=== PATIENT | female | born 1960 | race Caucasian/White ===

== ENCOUNTER → 2019-12-01 07:39 | Outpatient (CLI) | payer OTHER, SELFPAY ==
[2016-09-20 10:48] VITALS: BMI 43.1
[2019-12-01 08:43] LABS: Albumin, Serum 3.5 g/dL (3.2-5.0); BUN 13 mg/dL (7-18); BUN/Creat Ratio 9.1 RATIO (10-20); Calcium,Total 9.7 mg/dL (8.5-10.1); Chloride 107 mmol/L (98-107); Creatinine, Serum 1.43 mg/dL (0.55-1.02); EST Glomerular Filtration Rate 40 mL/min (>60); Est Glom Filt Rate - Afr Amer 49 mL/min (>60); Glucose 115 mg/dL (74-106); Phosphorus 3.5 mg/dL (2.5-4.9); Potassium 4.3 mmol/L (3.5-5.1); Sodium Level 142 mmol/L (136-145)
== END ==
LOC: LAB.FUTURE 07:44 → LAB 07:52
PROVIDERS: PCP Family Medicine; Referring Provider Internal Medicine Nephrology; Visit Provider Internal Medicine Nephrology
DX: N18.3 Chronic kidney disease, stage 3 (moderate) (principal)
CPT/HCPCS: 36415; 80069

== ENCOUNTER → 2019-12-29 09:36 | Outpatient (CLI) | payer OTHER, SELFPAY ==
[2016-09-20 10:48] VITALS: BMI 43.1
[2019-12-29 10:43] LABS: Albumin, Serum 3.3 g/dL (3.2-5.0); BUN 14 mg/dL (7-18); BUN/Creat Ratio 11.6 RATIO (10-20); Calcium,Total 9.2 mg/dL (8.5-10.1); Chloride 106 mmol/L (98-107); Creatinine, Serum 1.21 mg/dL (0.55-1.02); EST Glomerular Filtration Rate 49 mL/min (>60); Est Glom Filt Rate - Afr Amer 59 mL/min (>60); Glucose 106 mg/dL (74-106); Phosphorus 2.4 mg/dL (2.5-4.9); Potassium 4.1 mmol/L (3.5-5.1); Sodium Level 140 mmol/L (136-145)
== END ==
PROVIDERS: PCP Family Medicine; Referring Provider Internal Medicine Nephrology; Visit Provider Internal Medicine Nephrology
DX: N18.3 Chronic kidney disease, stage 3 (moderate) (principal)
CPT/HCPCS: 36415; 80069

== ENCOUNTER → 2020-12-26 12:01 | Outpatient (CLI) | payer OTHER, SELFPAY ==
--- NOTE | 2020-12-26 14:23 | NEURO_ITS ---
NCS and/or EMG Patient Report Ordering Doctor: Dawood Ahuja III DATE OF SERVICE: 12/26/20 Indication: Bilateral wrist pain with intermittent numbness and tingling in the hands. Evaluate for median neuropathy. Findings: Nerve conduction studies were performed in the right and left upper extremities. The right median motor study recording the abductor pollicis brevis showed a normal amplitude, prolonged distal latency and slowed conduction velocity. The right ulnar motor study recording the abductor digiti minimi showed a normal amplitude, normal distal latency and normal conduction velocity. No conduction block or focal slowing was present across the elbow. The right median sensory response recording digit two showed a normal amplitude, prolonged latency and slowed conduction velocity. The right ulnar sensory response recording digit five showed a normal amplitude, latency and conduction velocity. The right radial sensory response recording over the extensor snuff box showed a normal amplitude, latency and conduction velocity. The left median motor study recording the abductor pollicis brevis showed a normal amplitude, prolonged distal latency and normal conduction velocity. The left ulnar motor study recording the abductor digiti minimi showed a normal amplitude, normal distal latency and normal conduction velocity. No conduction block or focal slowing was present across the elbow. The left median sensory response recording digit two showed a normal amplitude, prolonged latency and borderline conduction velocity. The left ulnar sensory response recording digit five showed a normal amplitude, latency and conduction velocity. The left radial sensory response recording over the extensor snuff box showed a normal amplitude, latency and conduction velocity. Right median-ulnar lumbrical / interosseous motor latencies showed a prolonged median latency compared to the ulnar. Left median-ulnar lumbrical / interosseous motor latencies showed a prolonged median latency compared to the ulnar. Needle EMG of the right upper extremity and cervical paraspinal muscles was performed. No denervation was seen in any muscle. All motor unit morphology, activation and recruitment patterns were normal. Needle EMG of the left abductor pollicis brevis was performed. No denervation was seen. Motor unit morphology, activation and recruitment patterns were normal. Impression: This is a mildly abnormal study. There is electrophysiologic evidence of median neuropathy across the wrist on both sides (mild on the right; mild on the left). These findings are compatible with the clinical diagnosis of carpal tunnel syndrome. In addition, there is no electrophysiologic evidence of cervical radi culopathy or other entrapment neuropathy in the right upper extremity. Evangelista Yoon D.O.
== END ==
LOC: PSN 12:01
PROVIDERS: PCP Family Medicine; Referring Provider Family Medicine; Visit Provider Family Medicine
DX: G56.03 Carpal tunnel syndrome, bilateral upper limbs (principal)
CPT/HCPCS: 95885; 95886; 95913

== ENCOUNTER 2022-02-27 14:37 | Emergency (ER) | payer SELFPAY ==
[2022-02-27 14:38] VITALS: BP 148/70; PULSE 62; RESP 15; TEMP 36.2; O2SAT 97; BMI 49.6
[2022-02-27 14:40] VITALS: BP 148/70; PULSE 62; RESP 16; TEMP 36.2; O2SAT 97
--- NOTE | 2022-02-27 15:10 | MRI_ITS ---
STUDY: MR Spine Lumbar W/O Contrast 02/27/2022 7:59 PM REASON FOR EXAM: Female, 61 years old. Back pain radiculopathy, LBP x 5 weeks, urine and bowel incontinance x 2 days TECHNIQUE: MR Spine Lumbar W/O Contrast Standardized fat and water weighted pulse sequences were obtained. COMPARISON: None FINDINGS: T12-L1: Loss of intervertebral disc height. There is endplate spondylosis of the vertebral body. Normal central canal and intervertebral neuroforamina. There is bilateral facet arthropathy. There is bilateral ligamentum flavum thickening. Normal lumbar lordosis. There is no substantial scoliosis. Normal conus medullaris that terminates at the L1. L1-2: Loss of intervertebral disc height. There is endplate spondylosis of the vertebral body. Normal central canal and intervertebral neuroforamina. There is bilateral facet arthropathy. There is bilateral ligamentum flavum thickening. L2-3: Loss of intervertebral disc height. There is endplate spondylosis of the vertebral body. Normal central canal and intervertebral neuroforamina. There is bilateral facet arthropathy. There is bilateral ligamentum flavum thickening. L3-4: Loss of intervertebral disc height. There is endplate spondylosis of the vertebral body. Normal central canal and intervertebral neuroforamina. There is bilateral facet arthropathy. There is bilateral ligamentum flavum thickening. L4-5: Loss of intervertebral disc height. There is endplate spondylosis of the vertebral body. Normal central canal and intervertebral neuroforamina. There is bilateral facet arthropathy. There is bilateral ligamentum flavum thickening. L5-S1: Loss of intervertebral disc height. There is endplate spondylosis of the vertebral body. There is bilateral facet arthropathy. Normal central canal and intervertebral neuroforamina. Normal visualized sacral ala. Normal visualized paraspinous soft tissue structures. MRI/Spine Lumbar (Routine) IMPRESSION: Multilevel degenerative changes, as described above. Electronically Signed: Antwan Mares MD at 20:02 EDT ,
--- NOTE | 2022-02-27 15:12 | EDS_ITS ---
HPI History of Present Illness Chief Complaint: Back Detail of Chief Complaint: Back pain that initially started 5 weeks ago Informant: patient Onset/Context/Timing Current Severity: 01/07 Maximum Severity: Severe Associated Symptoms Associated Symptoms: Numbness, Tingling, Radiation to Right Leg, Urinary Incontinence and Fecal Incontinence Narrative Narrative: Patient presents to the emergency department complaint of back pain that initially started about 5 weeks ago after doing physical therapy for work. Patient initially she thought she just pulled a muscle in her back and had a lot of soreness that lasted several weeks but eventually got better. Patient states that she was then left with a pain in her back that radiated down her leg. Over the last 2 days she has had several episodes of incontinence of urine as well as stool. Patient was seen by nurse practitioner at her primary care physician's office and was referred to the emergency department for evaluation. Patient denies any direct trauma to her back. She denies saddle anesthesia. She denies weakness in the extremity. At rest she states the pain is about a 3 or 4 out of 10 while lying flat. States the pain becomes more severe when she tries to stand or walk or climb stairs. Prior similar symptoms: No Recent Illness/Hospitalization: No PFSH PFS Medical History (Updated 02/27/22 @ 20:[address] Jessy Cannon, ) Depression Former tobacco use HLD (hyperlipidemia) HTN (hypertension) Morbid obesity Home Medications citalopram 20 mg PO DAILY 09/13/16 [History Last Taken Unknown] furosemide 40 mg PO BID PRN PRN 09/13/16 [History Last Taken Unknown] labetalol 200 mg PO BID 09/13/16 [History Last Taken 09/20/16 10:15] multivitamin with folic acid [Thera] 1 tab PO DAILY 09/13/16 [History Last Taken Unknown] cyclobenzaprine 10 mg PO TID PRN #20 tablet 02/27/22 [Rx Last Taken Unknown] naproxen 500 mg PO BID #14 tab 02/27/22 [Rx Last Taken Unknown] oxycodone-acetaminophen 1 tab PO Q6H PRN PRN 5 Days #20 tablet 02/27/22 [Rx Last Taken Unknown] rosuvastatin 20 mg PO QHS 02/27/22 [History Last Taken Unknown] Allergy/AdvReac Type Severity Reaction Status Date / Time chlorpromazine Allergy Other Verified 09/20/16 10:46 [From Thorazine] lisinopril Allergy Rash Verified 09/20/16 10:46 Family History (Updated 02/27/22 @ 19:[address] Yanira Hernandez MD) Mother Heart disease Hypertension Sister Heart disease Hypertension Myocardial infarction Brother Colon cancer Family History no significant family his Surgical History (Updated 02/27/22 @ 19:[address] Yanira Hernandez MD) History of bilateral tubal ligation History of left breast biopsy Status post total hip replacement, right Surgical History no surgical history Social History (Updated 02/27/22 @ 19:[address] Yanira Hernandez MD) household members: none Smoking Status: Former smoker how long ago did patient quit smoking: Quit 07/14/2021, smoked 1 ppd x 3 years. alcohol intake: current alcohol intake frequency: holidays/special occasions only substance use type: does not use ROS ROS ED Constitutional Constitutional ED: Reports systems reviewed and no addt'l complaints, except as documented; Denies body ache(s), change in weight or chills Eyes Eyes: Denies acute decrease in peripheral vision, change in vision, double vision or loss of vision ENT ENT ED: Reports none; Denies ear pain, lip swelling, loss taste/smell, neck pain, otalgia or sore throat Cardiovascular Cardiovascular: Reports none; Denies abdominal pain, chest pain with activity, leg edema, lightheadedness, palpitations, rapid heart rate or syncope Respiratory/Chest Respiratory/Chest: Reports none; Denies change in mental status, dry cough, dyspnea, hemoptysis, shortness of breath at rest or shortness of breath with exertion Gastrointestinal Gastrointestinal: Reports none and other Details: Stool incontinence ; Denies abdominal pain, change in stool character, diarrhea, hematemesis, hematochezia, melena, rectal bleeding or vomiting Genitourinary Genitourinary ED: Reports none and other Details: Urinary incontinence ; Denies abdominal discomfort, anuria, dysuria, genital pain or polyuria Musculoskeletal Musculoskeletal: Reports none and back pain; Denies arthralgias, difficulty walking, extremity pain, muscle weakness or myalgias Integumentary Reports none; Denies abscess or rash Neurologic Neurologic: Reports none; Denies abnormal gait, confusion, focal weakness, frequent falls, headache(s), loss of vision, numbness, paresthesias, radicular pain, vertigo or weakness Psychiatric Psychiatric: Reports systems reviewed and no addt'l complaints, except as documented and none; Denies behavioral changes, confusion, difficulty concentrating, hallucinations, suicidal ideation, tactile hallucinations or visual hallucinations Endocrine Endocrinology: Denies none, cold intolerance, excessive sweating, fatigue or heat intolerance Hematologic/Lymphatic Hematologic/Lymphatic: Reports none; Denies anemia, easy bleeding or easy bruising Allergic/Immunologic Allergic/Immunologic ED: Denies as per HPI, none, lip swelling, mouth swelling, throat swelling, tongue swelling or hives EXAM Physical Exam Const Vital Signs: 02/27/22 14:38 02/27/22 14:40 02/27/22 17:27 Temperature 97.2 F L 97.2 F L Temperature Source Temporal Temporal Pulse Rate 62 62 68 Respiratory Rate 15 16 16 Blood Pressure 148/70 H 148/70 H 141/79 H Blood Pressure Mean 96 96 99 Pulse Ox 97 97 99 Oxygen Delivery Method Room Air Room Air Room Air 02/27/22 20:04 Temperature Temperature Source Pulse Rate 65 Respiratory Rate 16 Blood Pressure 144/86 H Blood Pressure Mean 105 Pulse Ox 97 Oxygen Delivery Method Room Air Positive well nourished and well developed General Appearance ED: well developed and NAD HEENT Reports TM's clear and moist mucous membranes normocephalic and atraumatic; Negative for trauma or tenderness Tympanic Membrane ED: Yes TM's clear Eyes PERRL and EOMs intact bilaterally General Eye ED: Negative for pale conjunctiva or scleral icterus Neck no lymphadenopathy, supple and no JVD General: Negative for tenderness Chest Wall inspection of chest normal and palpation of chest normal Chest: Negative for tenderness Resp normal respiratory effort and clear to auscultation bilaterally Effort and Inspection: Negative for respiratory distress or pain with movement Auscultation: Negative for rhonchi, wheezes or diminished lung sounds Cardio regular rate, regular rhythm, S1 normal heart sound, S2 normal heart sound and no murmurs Peripheral Pulses: pulses 2+ throughout GI normal to inspection, nondistended, normoactive bowel sounds, soft to palpation, non-tender, non-distended and no masses Back/Spine no CVA tenderness Back/Spine Narrative: Patient with diffuse tenderness palpation over the lumbar spine. She has straight leg raise is positive on the left at about 30 degrees. Patient has decree sensation to her medial lateral thigh on the left compared to the right but normal sensation to the lower legs bilaterally. Patient has normal L5 extension bilaterally. Deep tendon reflexes are plus 2 out of 4 bilaterally at the patella and Achilles. Patient did have rectal exam performed and she did have rectal tone and no loss of sensation to the perianal area. Extremity normal to inspection General Extremety ED: Negative for edema General Extremity: Negative for edema Neuro oriented x3, CN's II-XII intact bilaterally, no sensory deficits noted and gait normal Sensorium / Orientation: awake, alert, oriented to person, oriented to place and oriented to time Motor Exam: strength 5/5 throughout and strength abnormal Psych mental status grossly normal Skin no rashes or lesions noted and no wounds MDM MDM MDM Narrative Medical decision making narrative: IV line was established on arrival. Patient was medicated with morphine and Zofran. An MRI of the lumbar spine was ordered. Patient had basic labs ordered as well. MRI showed degenerative changes otherwise nothing acute. No surgical or emergent issues identified on MRI. Patient lab work and urinalysis were unremarkable. At this point patient will be discharged to home and given a prescription for [place] as well as Flexeril and naproxen. Patient advised to follow-up with back specialist that I will refer to. Patient advised to return if worsening pain, weakness in extremities, or condition should worsen anyway. Lab Data Labs: Laboratory Results - last 24 hr 02/27/22 02/27/22 02/27/22 15:15 15:15 17:20 WBC 8.8 RBC 4.88 Hgb 13.2 Hct 42.1 MCV 86.3 MCH 27.0 MCHC 31.4 L RDW Std Deviation 45.4 H RDW Coeff of Redd 14.5 Plt Count 342 MPV 10.4 Immature Gran % (Auto) 0.300 Neut % (Auto) 58.2 Lymph % (Auto) 27.7 [place] % (Auto) 7.1 Eos % (Auto) 6.2 H Baso % (Auto) 0.5 Absolute Neuts (auto) 5.1 Absolute Lymphs (auto) 2.43 Nucleated RBC % 0 Sodium 140 Potassium 3.9 Chloride 108 H Carbon Dioxide 28.0 Anion Gap 4 L BUN 21 H Creatinine 1.13 H Estim Creat Clear Calc 46.29 Est GFR (MDRD) Af Amer 63 Est GFR (MDRD) Non-Af 52 L BUN/Creatinine Ratio 18.6 Glucose 88 Calcium 9.5 Urine Color Yellow Urine Clarity Clear Urine pH 7.0 Ur Specific [place] 1.010 Urine Protein Negative Urine Glucose (UA) Normal Urine Ketones Negative Urine Occult Blood Negative Urine Nitrite Negative Urine Bilirubin Negative Urine Urobilinogen Normal Ur Leukocyte Esterase Negative Urine RBC 0-5 SEEN Urine WBC 0-5 SEEN Ur Squamous Epith Cells 0-5 SEEN Urine Bacteria RARE Urine Mucus 0 SEEN Radiography Diagnostic Testing: Clinical Impression(s) from Imaging Studies Lumbar Spine MRI 02/27/22 15:10 IMPRESSION: Multilevel degenerative changes, as described above. Electronically Signed: Antwan Mares MD at 20:02 EDT , Discharge Plan Triage Chief Complaint: Back ED Provider: Jessy Cannon Dx/Rx/DC Orders Clinical Impression: Back pain Instructions: ED Back Pain (Acute or Chronic) Prescriptions: New cyclobenzaprine [cyclobenzaprine] 10 MG tablet 10 mg PO TID PRN (Reason: Muscle Spasm) Qty: 20 RF: 0 oxycodone-acetaminophen [oxycodone-acetaminophen] 1 TABLET tablet 1 tab PO Q6H PRN PRN (Reason: pain) 5 Days Qty: 20 RF: 0 naproxen 500 MG tablet 500 mg PO BID Qty: 14 RF: 0 No Action furosemide 40 MG tablet 40 mg PO BID PRN PRN (Reason: Edema) RF: 0 labetalol 200 MG tablet 200 mg PO BID RF: 0 citalopram 20 MG tablet 20 mg PO DAILY RF: 0 multivitamin with folic acid [Thera] 1 TABLET tablet 1 tab PO DAILY RF: 0 rosuvastatin 20 mg tablet 20 mg PO QHS RF: 0 Primary Care Provider: Armand Ibrahim Referrals: Cullen Shoemaker DO [STAFF PHYSICIAN] - 3-5 Days Armand Ibrahim MD [Primary Care Provider] - Disposition Disposition: Home, Self Care
[2022-02-27] MEDS: Morphine 4 MG/ML Syringe IV ×2 (15:22→20:00)
[2022-02-27] MEDS: Ondansetron 4 MG/2 ML Vial IV (15:22)
[2022-02-27 15:30] LABS: Absolute Lymphocyte Count 2.43 X10^3/uL (0.83-4.51); Absolute Neutrophil Count 5.1 X10^3/uL (2.0-7.7); Basophil# 0.04 X10^3/uL; Basophil% 0.5 % (0-1); Eosinophil# 0.54 X10^3/uL; Eosinophils% 6.2 % (0-5); Hematocrit 42.1 % (37-47); Hemoglobin 13.2 g/dL (12.0-15.0); Lymphocyte # 2.43 X10^3/ul (0.83-4.51); Lymphocyte % 27.7 % (19-41); Mean Corp Hgb Conc 31.4 g/dL (32-36); Mean Corpuscular Volume 86.3 fL (81-99); Mean Platelet Vol. 10.4 fl (6.2-12.0); Monocyte# 0.62 X10^3/uL; Monocyte% 7.1 % (0-10); NRBC Flagged by Analyzer 0 % (0-5); Neutrophil # 5.11 X10^3/uL (2.7-7.7); Neutrophil % 58.2 % (47-70); Platelet Count 342 K/mm3 (150-450); RBC Distribution Width CV 14.5 % (11.6-14.6); RBC Distribution Width SD 45.4 fl (35.1-43.9); Red Blood Count 4.88 M/mm3 (4.2-5.4); White Blood Count 8.8 K/mm3 (4.4-11.0)
[2022-02-27 15:39] LABS: Anion Gap 4 (5-15); BUN 21 mg/dL (7-18); BUN/Creat Ratio 18.6 RATIO (10-20); Calcium,Total 9.5 mg/dL (8.5-10.1); Chloride 108 mmol/L (98-107); Creatinine, Serum 1.13 mg/dL (0.55-1.02); EST Glomerular Filtration Rate 52 mL/min (>60); Est Glom Filt Rate - Afr Amer 63 mL/min (>60); Estimated Creatinine Clearance 46.29 ml/min; Glucose 88 mg/dL (74-106); Potassium 3.9 mmol/L (3.5-5.1); Sodium Level 140 mmol/L (136-145)
--- NOTE | 2022-02-27 16:10 | NURSING ---
MRI CALLED AND THEY WILL BE DOING THE MRI BETWEEN 6:30 AND 7:00 PM
[2022-02-27 17:25] LABS: Mucous, Urine 0 SEEN /hpf (<or=2+)
[2022-02-27 17:27] VITALS: BP 141/79; PULSE 68; RESP 16; O2SAT 99
[2022-02-27 17:38] LABS: Color, Urine Yellow (Yellow); Glucose, Dipstick Normal (Normal); Ketone-Dipstick Negative (Negative); Leukocyte Esterase-Dipstick Negative /ul (Negative); Nitrite-Dipstick Negative (Negative); Occult Blood-Urine Negative /ul (Negative); Protein-Dipstick Negative (Negative); Urine Bilirubin Dipstick Negative (Negative); Urine Clarity Clear (Clear); Urine Urobilinogen Normal (Normal)
[2022-02-27 18:00] LABS: Bacteria RARE /hpf (None Seen); Red Blood Cells-Urine 0-5 SEEN /hpf (0-5); Squamous Epithelial Cells - UA 0-5 SEEN /hpf (5-10); White Blood Cells 0-5 SEEN /hpf (0-5)
--- NOTE | 2022-02-27 18:30 | NURSING ---
pt left for MRI at this time. no s/sx of distress noted.
[2022-02-27 20:04] VITALS: BP 144/86; PULSE 65; RESP 16; O2SAT 97
[2022-02-27 20:15] VITALS: BP 144/86; PULSE 65; RESP 16; O2SAT 97
== END 2022-02-27 20:18 | disposition home or self-care (01) ==
PROVIDERS: Emergency Provider Emergency Medicine; PCP Family Medicine; Visit Provider Emergency Medicine
DX: M54.9 Dorsalgia, unspecified (principal); I10 Essential (primary) hypertension; E78.5 Hyperlipidemia, unspecified; F32.A Depression, unspecified; Z79.899 Other long term (current) drug therapy; Z87.891 Personal history of nicotine dependence
CPT/HCPCS: 72148; 80048; 81001; 85025; 96374; 96375; 96376; 99283; A4216; J2405

== ENCOUNTER 2022-07-01 11:02 | Inpatient (IN) | payer BC, MEDICAID, SELFPAY ==
[2022-07-01 11:04] VITALS: BP 164/91; PULSE 110; RESP 18; TEMP 35.9; O2SAT 94; BMI 48.5
--- NOTE | 2022-07-01 11:19 | EX.ED.DYSGE1 ---
HPI <BLAKE Talley - Last Filed: 07/01/22 12:53> History of Present Illness Chief Complaint: Wound Narrative Narrative: 62-year-old female presents to the emergency department with complaints of cellulitis, abscess to the right breast. Patient has a past medical history of prediabetes, hypertension, lipidemia, obesity. Patient states that she was seen at urgent care 4 days ago, placed on Bactrim, steroid cream however the cellulitis has gotten worse spread outside the line that they have drawn. She also appears to have an abscess just lateral to the nipple. Patient states to have fever and chills that are subjective. However patient does not have a thermometer at home. Patient is here for worsening redness, pain. PFSH <BLAKE Talley - Last Filed: 07/01/22 12:53> [facility] Medical History (Updated 07/01/22 @ 11:[address] Sudhakar Singh MD) Depression Former tobacco use HLD (hyperlipidemia) HTN (hypertension) Morbid obesity Home Medications citalopram 20 mg tablet 20 mg PO DAILY 09/13/16 [History Last Taken Unknown] furosemide 40 mg tablet 40 mg PO BID PRN PRN Edema 09/13/16 [History Last Taken Unknown] labetalol 200 mg tablet 200 mg PO BID 09/13/16 [History Last Taken 09/20/16 10:15] multivitamin with folic acid 400 mcg tablet (Thera) 1 tab PO DAILY 09/13/16 [History Last Taken Unknown] cyclobenzaprine 10 mg tablet 10 mg PO TID PRN Muscle Spasm #20 TABLETS 02/27/22 [Rx Last Taken Unknown] naproxen 500 mg tablet 500 mg PO BID #14 tabs 02/27/22 [Rx Last Taken Unknown] oxycodone-acetaminophen 5 mg-325 mg tablet 1 tab PO Q6H PRN PRN pain 5 days #20 TABLETS 02/27/22 [Rx Last Taken Unknown] rosuvastatin 20 mg tablet 20 mg PO QHS 02/27/22 [History Last Taken Unknown] Allergy/AdvReac Type Severity Reaction Status Date / Time chlorpromazine Allergy Other Verified 07/01/22 11:04 [From Thorazine] lisinopril Allergy Hives Verified 07/01/22 11:04 Family History (Updated 02/27/22 @ 19:[address] Yanira Hernandez MD) Mother Heart disease Hypertension Sister Heart disease Hypertension Myocardial infarction Brother Colon cancer Surgical History (Updated 02/27/22 @ 19:[address] Yanira Hernandez MD) History of bilateral tubal ligation History of left breast biopsy Status post total hip replacement, right Social History (Updated 02/27/22 @ 19:[address] Yanira Hernandez MD) household members: none Smoking Status: Former smoker how long ago did patient quit smoking: Quit 07/14/2021, smoked 1 ppd x 3 years. alcohol intake: current alcohol intake frequency: holidays/special occasions only substance use type: does not use ROS <BLAKE Talley - Last Filed: 07/01/22 12:53> ROS ED ROS Narrative Constitutional: Negative for fever, chills, weight loss, weakness Eyes: Negative for vision loss, vision change, double vision ENT: Negative for any sore throat, ear pain, congestion Cardiovascular: Negative for any chest pain, tightness, palpitations Respiratory: Negative for any cough, sputum production, hemoptysis, dyspnea, dyspnea on exertion, orthopnea Gastrointestinal: Negative for any abdominal pain, nausea, vomiting, diarrhea, constipation, blood in stool, blood in vomit : Negative for any urinary frequency, dysuria, retention, blood in urine Muscle skeletal: Negative for any muscle joint pain, stiffness, myalgias, arthralgias, neck pain, back pain Neurological: Negative for any headache, syncope, numbness or tingling, dizziness Skin: Negative for any rashes, lumps, itching, abrasions, lacerations. Positive for redness, pain, possible abscess to the right breast Psychiatric: Negative for any depression, anxiety, stress, suicidal ideation, homicidal ideation Hematologic: Negative for any easy bruising, excessive bruising, easy bleeding Allergies: Negative for any eczema, hives, rash EXAM <BLAKE Talley - Last Filed: 07/01/22 12:53> Physical Exam Narrative Exam Narrative: Vital signs reviewed. HEET: Head normocephalic atraumatic, TMs clear bilaterally. Posterior pharynx is clear, moist mucous membranes. Nares clear bilaterally. Neck: Supple with no lymphadenopathy or tenderness. No signs of meningismus, negative jolt sign. Cardiac: Regular rate and rhythm no murmurs gallops or rubs, equal peripheral pulses bilaterally. Respiratory: Lungs clear to auscultation bilaterally. Patient does have right-sided breast tenderness, cellulitis. there does appear to be abscess formation. Abdomen: Soft, nontender, nondistended. No abdominal bruit or pulsatile masses. No hepatosplenomegaly Extremities: No peripheral edema, no signs of gross trauma or deformity. Active full range of motion of all extremities. Neuro: Cranial nerves II through XII intact, no focal neurological deficits. Skin: Clean dry and intact with no rash, purpura, petechiae, vesicles or pustules. Patient does have significant cellulitis that covers the lateral side of the right breast, there is no drainage from the nipple. This redness, pain, extends into the lateral breast of the right side as well as into the armpit. Backs/flank: No CVA tenderness, no midline spinal tenderness, no deformity. Psych: Normal mood and affect. No SI, HI or acute psychosis. Const Vital Signs: 07/01/22 11:04 Temperature 96.6 F L Temperature Source Temporal Pulse Rate 110 H Respiratory Rate 18 Blood Pressure 164/91 H Blood Pressure Mean 115 Pulse Ox 94 Oxygen Delivery Method Room Air Positive well nourished and well developed General Appearance ED: well developed <Dr. Sudhakar Singh MD - Last Filed: 07/01/22 11:41> Physical Exam Const Vital Signs: 07/01/22 11:04 Temperature 96.6 F L Temperature Source Temporal Pulse Rate 110 H Respiratory Rate 18 Blood Pressure 164/91 H Blood Pressure Mean 115 Pulse Ox 94 Oxygen Delivery Method Room Air MDM <BLAKE Talley - Last Filed: 07/01/22 12:53> [facility] Lab Data Labs: Laboratory Results - last 24 hr 07/01/22 07/01/22 11:20 11:20 WBC 10.6 RBC 4.98 Hgb 14.0 Hct 42.5 MCV 85.3 MCH 28.1 MCHC 32.9 RDW Std Deviation 42.5 RDW Coeff of Redd 13.5 Plt Count 310 MPV 10.5 Immature Gran % (Auto) 0.500 Neut % (Auto) 69.7 Lymph % (Auto) 19.9 [place] % (Auto) 6.9 Eos % (Auto) 2.7 Baso % (Auto) 0.3 Absolute Neuts (auto) 7.4 Absolute Lymphs (auto) 2.12 Nucleated RBC % 0 Sodium 137 Potassium 3.9 Chloride 103 Carbon Dioxide 23.0 Anion Gap 11 BUN 13 Creatinine 1.28 H Estim Creat Clear Calc 40.36 Est GFR (MDRD) Af Amer 55 L Est GFR (MDRD) Non-Af 45 L BUN/Creatinine Ratio 10.2 Glucose 157 H Calcium 9.6 Total Bilirubin 0.40 AST 11 L ALT 16 Alkaline Phosphatase 93 Total Protein 8.0 Albumin 2.8 L Globulin 5.2 H Albumin/Globulin Ratio 0.5 L Treatment and Re-Evaluation Narrative: Patient appears well, patient does appear nontoxic however does compare to be uncomfortable secondary to the cellulitis of the right breast. Patient will receive basic laboratory values, she will be started on IV Zosyn. The abscess would not be I&D it here in the emergency department, patient will need to be admitted to hospital for failed outpatient treatment. Patient was anesthetized, cleansed, incision was placed on the abscess of the right breast, there was slight yellow drainage. Patient was started on IV Zosyn, patient will be admitted to the hospital for right breast cellulitis, right breast abscess. Patient is stable for admission to Dr. Olson <Dr. Sudhakar Singh MD - Last Filed: 07/01/22 11:41> MDM MDM Narrative Medical decision making narrative: I have personally performed a face to face assessment of the patient and have reviewed the JEANIE Note. I performed a substantive portion of the visit including all aspects of the following. My torres findings include: History is [62-year-old female prediabetic and evaluate with her nurse practitioner. Patient's had a 4-day history of a right breast cellulitis. She has been on Bactrim and is only getting worse.] Exam is [62-year-old no acute distress. Vital signs stable afebrile. HEENT exam unremarkable. Lungs are clear. Heart regular rhythm rate about 110 no murmur. Abdomen soft nontender. Right breast is swollen and tender. Indurated tissue. May have an abscess. Has axillary lymphadenopathy. Moving all 4 extremities.] Medical Decision Making [patient with an obvious right breast cellulitis and failed outpatient therapy. Very well may have an abscess and needs I&D need. She will be started on IV Zosyn. Labs are being obtained. Consults hospitalist for admission and discussed with them consulting general surgery.] Other additions or changes: [None] Lab Data Labs: Laboratory Results - last 24 hr 07/01/22 07/01/22 11:20 11:20 WBC 10.6 RBC 4.98 Hgb 14.0 Hct 42.5 MCV 85.3 MCH 28.1 MCHC 32.9 RDW Std Deviation 42.5 RDW Coeff of Redd 13.5 Plt Count 310 MPV 10.5 Immature Gran % (Auto) 0.500 Neut % (Auto) 69.7 Lymph % (Auto) 19.9 [place] % (Auto) 6.9 Eos % (Auto) 2.7 Baso % (Auto) 0.3 Absolute Neuts (auto) 7.4 Absolute Lymphs (auto) 2.12 Nucleated RBC % 0 Sodium 137 Potassium 3.9 Chloride 103 Carbon Dioxide 23.0 Anion Gap 11 BUN 13 Creatinine 1.28 H Estim Creat Clear Calc 40.36 Est GFR (MDRD) Af Amer 55 L Est GFR (MDRD) Non-Af 45 L BUN/Creatinine Ratio 10.2 Glucose 157 H Calcium 9.6 Total Bilirubin 0.40 AST 11 L ALT 16 Alkaline Phosphatase 93 Total Protein 8.0 Albumin 2.8 L Globulin 5.2 H Albumin/Globulin Ratio 0.5 L Discharge Plan Dx/Rx/DC Orders Clinical Impression: Cellulitis of breast, Abscess of breast Disposition Disposition: Acute Care [facility]
[2022-07-01] MEDS: 0.9% Normal Saline 1,000 ML 1000 ML IV (11:38)
[2022-07-01 11:39] LABS: Absolute Lymphocyte Count 2.12 X10^3/uL (0.83-4.51); Absolute Neutrophil Count 7.4 X10^3/uL (2.0-7.7); Basophil# 0.03 X10^3/uL; Basophil% 0.3 % (0-1); Eosinophil# 0.29 X10^3/uL; Eosinophils% 2.7 % (0-5); Hematocrit 42.5 % (37-47); Lymphocyte # 2.12 X10^3/ul (0.83-4.51); Lymphocyte % 19.9 % (19-41); Mean Corp Hgb Conc 32.9 g/dL (32-36); Mean Corpuscular Hgb 28.1 pg (27.0-32.0); Mean Corpuscular Volume 85.3 fL (81-99); Mean Platelet Vol. 10.5 fl (6.2-12.0); Monocyte# 0.73 X10^3/uL; Monocyte% 6.9 % (0-10); NRBC Flagged by Analyzer 0 % (0-5); Neutrophil # 7.42 X10^3/uL (2.7-7.7); Neutrophil % 69.7 % (47-70); Platelet Count 310 K/mm3 (150-450); RBC Distribution Width CV 13.5 % (11.6-14.6); RBC Distribution Width SD 42.5 fl (35.1-43.9); Red Blood Count 4.98 M/mm3 (4.2-5.4); White Blood Count 10.6 K/mm3 (4.4-11.0)
[2022-07-01 11:48] LABS: ALB/GLOB Ratio 0.5 RATIO (0.9-2.4); AST(SGOT) 11 U/L (15-37); Alanine Aminotransfer ALT/SGPT 16 U/L (13-56); Albumin, Serum 2.8 g/dL (3.2-5.0); Alkaline Phosphatase 93 U/L (45-117); Anion Gap 11 (5-15); BUN 13 mg/dL (7-18); BUN/Creat Ratio 10.2 RATIO (10-20); Calcium,Total 9.6 mg/dL (8.5-10.1); Chloride 103 mmol/L (98-107); Creatinine, Serum 1.28 mg/dL (0.55-1.02); EST Glomerular Filtration Rate 45 mL/min (>60); Est Glom Filt Rate - Afr Amer 55 mL/min (>60); Estimated Creatinine Clearance 40.36 ml/min; Globulin 5.2 g/dL (2.2-4.2); Glucose 157 mg/dL (74-106); Potassium 3.9 mmol/L (3.5-5.1); Sodium Level 137 mmol/L (136-145)
[2022-07-01] MEDS: Lidocaine 1% /Epi 1:100 (20ml) 20 ML Vial 3 ML INFILT (12:43)
[2022-07-01 12:54] VITALS: BP 164/91; PULSE 110; RESP 18; TEMP 35.9; O2SAT 94
--- NOTE | 2022-07-01 13:02 | NURSING ---
MED SURG KOTSELMERS RT BREAST CELLULITIS, RT BREAST ABSCESS
--- NOTE | 2022-07-01 13:12 | PCM.HP.STD ---
HPI - General General Date of Admission: 07/01/22 HPI Narrative MAYITO REMY, is a 62 F who presents to the hospital with progressive worsening of right breast cellulitis. She states that several weeks ago she initially noticed redness spreading from her right axillary region and then several days ago she noticed significantly swollen lymph nodes in her right axilla as well as a pustule medial to her right nipple. She went to urgent care 4 days ago and they gave her p.o. Bactrim as well as a steroid cream. Needless to say the steroid cream appears to have made this worse and she developed an abscess that was drained in the ER with culture sent. Prior to 4 days ago she did not seek medical care as she was trying [id number] regimens to treat her rash. [facility] Medical History (Updated 07/01/22 @ 11:[address] Sudhakar Singh MD) Depression Former tobacco use HLD (hyperlipidemia) HTN (hypertension) Morbid obesity Home Medications citalopram 20 mg tablet 20 mg PO DAILY 09/13/16 [History Last Taken Unknown] furosemide 40 mg tablet 40 mg PO BID PRN PRN Edema 09/13/16 [History Last Taken Unknown] labetalol 200 mg tablet 200 mg PO BID 09/13/16 [History Last Taken 09/20/16 10:15] multivitamin with folic acid 400 mcg tablet (Thera) 1 tab PO DAILY 09/13/16 [History Last Taken Unknown] cyclobenzaprine 10 mg tablet 10 mg PO TID PRN Muscle Spasm #20 TABLETS 02/27/22 [Rx Last Taken Unknown] naproxen 500 mg tablet 500 mg PO BID #14 tabs 02/27/22 [Rx Last Taken Unknown] oxycodone-acetaminophen 5 mg-325 mg tablet 1 tab PO Q6H PRN PRN pain 5 days #20 TABLETS 02/27/22 [Rx Last Taken Unknown] rosuvastatin 20 mg tablet 20 mg PO QHS 02/27/22 [History Last Taken Unknown] Allergy/AdvReac Type Severity Reaction Status Date / Time chlorpromazine Allergy Other Verified 07/01/22 11:04 [From Thorazine] lisinopril Allergy Hives Verified 07/01/22 11:04 Family History (Updated 02/27/22 @ 19:[address] Yanira Hernandez MD) Mother Heart disease Hypertension Sister Heart disease Hypertension Myocardial infarction Brother Colon cancer Surgical History (Updated 02/27/22 @ 19:[address] Yanira Hernandez MD) History of bilateral tubal ligation History of left breast biopsy Status post total hip replacement, right Social History (Updated 02/27/22 @ 19:[address] Yanira Hernandez MD) household members: none Smoking Status: Former smoker how long ago did patient quit smoking: Quit 07/14/2021, smoked 1 ppd x 3 years. alcohol intake: current alcohol intake frequency: holidays/special occasions only substance use type: does not use ROS Constitutional Constitutional: Denies chills, fatigue, fever(s) or malaise Eyes Eyes: Denies blurry vision ENT HEENT: Denies headache(s) or nasal discharge Cardiovascular Cardiovascular: Denies chest pain, dyspnea on exertion or syncope Respiratory/Chest Respiratory/Chest: Denies cough, shortness of breath at rest or shortness of breath with exertion Gastrointestinal Gastrointestinal: Denies constipation, diarrhea, nausea or vomiting Genitourinary Genitourinary: Denies dysuria Integumentary Integumentary: Reports other Details: Right breast erythema Neurologic Neurologic: Denies focal weakness, numbness or tremor(s) Psychiatric Psychiatric: Denies anxiety or depression Vital Signs Vital Signs Vital Signs: 07/01/22 11:04 07/01/22 12:54 Temperature 96.6 F L 96.6 F L Temperature Source Temporal Temporal Pulse Rate 110 H 110 H Respiratory Rate 18 18 Blood Pressure 164/91 H 164/91 H Blood Pressure Mean 115 115 Pulse Ox 94 94 Oxygen Delivery Method Room Air Room Air Weight Weight: 282 lb 12.8 oz Body Mass Index (BMI) 48.5 Physical Exam Narrative General: Alert, Oriented x3, Cooperative, No apparent distress HEENT: Atraumatic, PERRLA, EOMI, Normocephalic Oral: Moist Mucosa Neck: Supple, No JVD Lungs: Clear to auscultation, Normal air movement, No rhonchi, No wheeze, No rales Cardiovascular: Regular rate, Regular Rhythm, Normal S1, Normal S2, No murmurs Abdomen: Soft, Non Tender, Non-Distended, No Hepato-splenomegaly Extremities: No edema, Capillary Refill Less than 3 Seconds Skin: Significant induration and redness in her right breast spreading to her right axilla. There is a 2 to 3cm incision with packing over the abscess that was drained in the ER Musculoskeletal: No Tenderness to Palpation of Joints or Extremities Neurological: Cranial nerves II-XII grossly intact, Motor Exam 5/5 strength throughout, Sensory exam intact to light touch and pain Psych/Mental Status: Normal Affect, Appropriate Results Lab / Micro Data Result Diagrams: 07/01/22 11:20 07/01/22 11:20 Labs: Laboratory Results - last 24 hr 07/01/22 11:20: WBC 10.6, RBC 4.98, Hgb 14.0, Hct 42.5, MCV 85.3, MCH 28.1, MCHC 32.9, RDW Std Deviation 42.5, RDW Coeff of Redd 13.5, Plt Count 310, MPV 10.5, Immature Gran % (Auto) 0.500, Neut % (Auto) 69.7, Lymph % (Auto) 19.9, [place] % (Auto) 6.9, Eos % (Auto) 2.7, Baso % (Auto) 0.3, Absolute Neuts (auto) 7.4, Absolute Lymphs (auto) 2.12, Nucleated RBC % 0 07/01/22 11:20: Sodium 137, Potassium 3.9, Chloride 103, Carbon Dioxide 23.0, Anion Gap 11, BUN 13, Creatinine 1.28 H, Estim Creat Clear Calc 40.36, Est GFR (MDRD) Af Amer 55 L, Est GFR (MDRD) Non-Af 45 L, BUN/Creatinine Ratio 10.2, Glucose 157 H, Calcium 9.6, Total Bilirubin 0.40, AST 11 L, ALT 16, Alkaline Phosphatase 93, Total Protein 8.0, Albumin 2.8 L, Globulin 5.2 H, Albumin/Globulin Ratio 0.5 L Assessment & Plan Assessment/Plan (1) Cellulitis of breast: (2) Abscess of breast: PLAN: Plan 1. Cellulitis and abscess of the right breast ? Continue with Ancef and will check the wound for MRSA, it appears that she had the spreading cellulitis first and then just developed an abscess which is a little bit abnormal for a MRSA infection ? She did fail outpatient management ? Renal function is at baseline 2. HTN/HLD ? Blood pressure stable ? Can resume her as needed Lasix for edema as well as her twice daily labetalol ? Continue with Crestor 3. Anxiety/depression ? Stable ? Continue with citalopram DVT: Lovenox Charges/Coding Visit Charges Inpatient E&M: 42026 Init Hosp L2
[2022-07-01 14:14] VITALS: BP 132/90; PULSE 96; RESP 18; TEMP 37; O2SAT 95
[2022-07-01 14:16] VITALS: BMI 47.8
[2022-07-01] MEDS: Acetaminophen 325 MG Tablet 650 MG PO (15:33)
[2022-07-01] MEDS: Cefazolin 1 GM/50 ML BAG IV (15:36)
[2022-07-01] MEDS: 0.9% Saline Lock 10 ML Syringe IV (15:36)
[2022-07-01 16:31] LABS: Probe Check PASS; Staph aureus DNA By PCR POSITIVE (Negative)
[2022-07-01 16:32] LABS: M R Staph aureus DNA By PCR POSITIVE (Negative)
--- NOTE | 2022-07-01 18:32 | PCM.RX.CS ---
Consult Pharmacy has been consulted to manage selected antiobiotic: Vancomycin Type of Consult: New start Suspected Infection: Skin/Soft tissue Labs: Sodium 137 mmol/L (136-145) 07/01/22 11:20 Potassium 3.9 mmol/L (3.5-5.1) 07/01/22 11:20 Chloride 103 mmol/L (98-107) 07/01/22 11:20 Carbon Dioxide 23.0 mmol/L (21.0-32.0) 07/01/22 11:20 Anion Gap 11 (5-15) 07/01/22 11:20 BUN 13 mg/dL (7-18) 07/01/22 11:20 Creatinine 1.28 mg/dL (0.55-1.02) H 07/01/22 11:20 Est GFR (MDRD) Af Amer 55 mL/min (>60) L 07/01/22 11:20 Est GFR (MDRD) Non-Af 45 mL/min (>60) L 07/01/22 11:20 BUN/Creatinine Ratio 10.2 RATIO (10-20) 07/01/22 11:20 Glucose 157 mg/dL (74-106) H 07/01/22 11:20 Microbiology: Microbiology 07/01/22 12:45 Wound Abcess - Breast Gram Stain - Final Goal Trough: 15-20 mcg/mL Pharmacy Plan for Drug Dosing: NEW START IV VANCOMYCIN Consulting Physician: Dr. Olson Indication: SSTI/ abscess Goal Trough:15-20 SrCr: 1.28 CrCl: 61 mL/min (using AdjBW) Comments: 2000mg IV x1 loading dose ordered and administered 07/01/22 @1801 Vancomycin Dose: 1500mg IV Q12hr to start 07/02/22 @0600 Pending Level: 07/03/22 @0530, prior to 4th total vancomycin dose per protocol Pharmacy Service will continue to monitor and adjust dosing as required.
[2022-07-01] MEDS: oxyCODONE 5 MG Tablet PO (19:40)
[2022-07-01 21:00] VITALS: BP 139/75; PULSE 93; RESP 16; TEMP 37.3; O2SAT 96
[2022-07-01] MEDS: Atorvastatin Calcium 40 MG Tablet PO (21:06)
[2022-07-01] MEDS: Labetalol 200 MG Tablet PO (21:06)
[2022-07-01] MEDS: Naproxen 500 MG Tablet PO (21:06)
[2022-07-01] MEDS: MELATONIN 3 MG TABLET PO (23:17)
[2022-07-02 03:27] VITALS: BP 105/59; PULSE 69; RESP 16; TEMP 36.6; O2SAT 96
[2022-07-02 03:29] VITALS: BP 105/59; PULSE 69; RESP 16; TEMP 36.6; O2SAT 96
[2022-07-02 05:28] LABS: Absolute Lymphocyte Count 2.02 X10^3/uL (0.83-4.51); Absolute Neutrophil Count 5.7 X10^3/uL (2.0-7.7); Basophil# 0.03 X10^3/uL; Basophil% 0.3 % (0-1); Eosinophil# 0.39 X10^3/uL; Eosinophils% 4.3 % (0-5); Hematocrit 39.2 % (37-47); Hemoglobin 12.5 g/dL (12.0-15.0); Lymphocyte # 2.02 X10^3/ul (0.83-4.51); Lymphocyte % 22.1 % (19-41); Mean Corp Hgb Conc 31.9 g/dL (32-36); Mean Corpuscular Volume 87.9 fL (81-99); Mean Platelet Vol. 10.7 fl (6.2-12.0); Monocyte# 0.93 X10^3/uL; Monocyte% 10.2 % (0-10); NRBC Flagged by Analyzer 0 % (0-5); Neutrophil % 62.4 % (47-70); Platelet Count 288 K/mm3 (150-450); RBC Distribution Width CV 13.3 % (11.6-14.6); Red Blood Count 4.46 M/mm3 (4.2-5.4); White Blood Count 9.1 K/mm3 (4.4-11.0)
[2022-07-02] MEDS: 0.9% Saline Lock 10 ML Syringe IV (05:41)
[2022-07-02 06:15] LABS: Anion Gap 7 (5-15); BUN 15 mg/dL (7-18); BUN/Creat Ratio 12.7 RATIO (10-20); Calcium,Total 9.2 mg/dL (8.5-10.1); Chloride 103 mmol/L (98-107); Creatinine, Serum 1.18 mg/dL (0.55-1.02); EST Glomerular Filtration Rate 50 mL/min (>60); Est Glom Filt Rate - Afr Amer 60 mL/min (>60); Estimated Creatinine Clearance 43.78 ml/min; Glucose 109 mg/dL (74-106); Potassium 3.7 mmol/L (3.5-5.1); Sodium Level 134 mmol/L (136-145)
--- NOTE | 2022-07-02 07:55 | PCM.PN.HOSP ---
Subjective Subjective Patient is a 62-year-old lady who presented with cellulitis and abscess involving the right breast underwent I&D in the emergency department subsequently admitted to regular nursing floor for further management Objective Data Objective Data Vital Signs: Vital Signs Temp Pulse Resp BP Pulse Ox O2 Del Method 97.9 F 69 16 105/59 L 96 Room Air 07/02/22 03:29 07/02/22 03:29 07/02/22 03:29 07/02/22 03:29 07/02/22 03:29 07/02/22 03:29 Oxygen Delivery Method Room Air Weight: 126.4 kg Body Mass Index (BMI) 47.8 Intake & Output: Intake and Output for Last 24 Hours 06/30/22 07/01/22 07/02/22 23:59 23:59 23:59 Intake Total 1989 Balance 1989 Lab / Micro Data Result Diagrams: 07/02/22 05:04 07/02/22 05:04 Labs: Laboratory Results - last 24 hr 07/01/22 11:20: WBC 10.6, RBC 4.98, Hgb 14.0, Hct 42.5, MCV 85.3, MCH 28.1, MCHC 32.9, RDW Std Deviation 42.5, RDW Coeff of Redd 13.5, Plt Count 310, MPV 10.5, Immature Gran % (Auto) 0.500, Neut % (Auto) 69.7, Lymph % (Auto) 19.9, [place] % (Auto) 6.9, Eos % (Auto) 2.7, Baso % (Auto) 0.3, Absolute Neuts (auto) 7.4, Absolute Lymphs (auto) 2.12, Nucleated RBC % 0 07/01/22 11:20: Sodium 137, Potassium 3.9, Chloride 103, Carbon Dioxide 23.0, Anion Gap 11, BUN 13, Creatinine 1.28 H, Estim Creat Clear Calc 40.36, Est GFR (MDRD) Af Amer 55 L, Est GFR (MDRD) Non-Af 45 L, BUN/Creatinine Ratio 10.2, Glucose 157 H, Calcium 9.6, Total Bilirubin 0.40, AST 11 L, ALT 16, Alkaline Phosphatase 93, Total Protein 8.0, Albumin 2.8 L, Globulin 5.2 H, Albumin/Globulin Ratio 0.5 L 07/01/22 14:50: S.aureus Protein A PCR POSITIVE H, MRSA (PCR) POSITIVE H 07/02/22 05:04: WBC 9.1, RBC 4.46, Hgb 12.5, Hct 39.2, MCV 87.9, MCH 28.0, MCHC 31.9 L, RDW Std Deviation 43.0, RDW Coeff of Redd 13.3, Plt Count 288, MPV 10.7, Immature Gran % (Auto) 0.700, Neut % (Auto) 62.4, Lymph % (Auto) 22.1, [place] % (Auto) 10.2 H, Eos % (Auto) 4.3, Baso % (Auto) 0.3, Absolute Neuts (auto) 5.7, Absolute Lymphs (auto) 2.02, Nucleated RBC % 0 07/02/22 05:04: Sodium 134 L, Potassium 3.7, Chloride 103, Carbon Dioxide 24.0, Anion Gap 7, BUN 15, Creatinine 1.18 H, Estim Creat Clear Calc 43.78, Est GFR (MDRD) Af Amer 60, Est GFR (MDRD) Non-Af 50 L, BUN/Creatinine Ratio 12.7, Glucose 109 H, Calcium 9.2 Micro: Microbiology 07/01/22 12:45 Wound Abcess - Breast Gram Stain - Final Physical Exam Narrative GENERAL: cooperative HEENT: Atraumatic; normocephalic EYES; Anicteric, Normal Conjunctiva NECK; supple, normal thyroid, RESPIRATORY: Diminished to auscultation CARDIOVASCULAR: Regular S1 S2, GI: soft, normoactive bowel sounds, : No Renal angle tenderness; EXTREMITIES: No edema, no clubbing, MUSCULOSKELETAL: no muscle wasting NEURO: Awake; no lateralizing signs. SKIN: induration and redness in her right breast spreading to her right axilla. PSYCH; Flat affect Assessment & Plan Assessment/Plan (1) Cellulitis of breast: (2) Abscess of breast: PLAN: Plan Patient is a 62-year-old lady who presented with cellulitis and abscess involving the right breast underwent I&D in the emergency department subsequently admitted to regular nursing floor for further management 1. Cellulitis and abscess involving the right breast ? Underwent I&D subsequently admitted to the regular nursing floor on broad-spectrum antibiotic therapy vancomycin. Patient rapid MRSA screen came back positive. Awaiting final sensitivities prior to discharge 2. Hypertension - Blood pressure controlled, home medications continued with dose adjustment as needed 3. Dyslipidemia -Patient is on statin therapy, continued at home dose 4. Depression with anxiety ? Patient is on escitalopram 5. Class III obesity with BMI of 47.8 ? Weight loss advised 6. DVT prophylaxis ? On enoxaparin Charges/Coding Visit Charges Inpatient E&M: 29131 Subs Hosp L2
[2022-07-02] MEDS: Acetaminophen 325 MG Tablet 650 MG PO ×3 (08:16→21:14)
[2022-07-02] MEDS: Enoxaparin 40 MG/0.4 ML Syringe SC (08:16)
[2022-07-02] MEDS: Labetalol 200 MG Tablet PO ×2 (08:17→21:14)
[2022-07-02] MEDS: Citalopram 20 MG Tablet PO (08:17)
[2022-07-02] MEDS: Naproxen 500 MG Tablet PO ×2 (08:17→17:29)
[2022-07-02] MEDS: FLU VACC QS2022-23(6MOS UP)/PF 60 MCG/0.5 ML SYRINGE IM (08:17)
[2022-07-02 09:00] VITALS: BP 102/56; PULSE 70; RESP 18; TEMP 36.7; O2SAT 96
[2022-07-02 09:30] VITALS: BP 102/56; PULSE 70; RESP 18; TEMP 36.7; O2SAT 96
--- NOTE | 2022-07-02 10:51 | WOUNDNOTE ---
wound photo: right breast
--- NOTE | 2022-07-02 10:52 | WOUNDNOTE ---
skin photo: right axilla
--- NOTE | 2022-07-02 11:32 | CASEMGMT ---
Addendum entered by Della Starks 07/02/22 12:00: Spoke with wound nurse who does not anticipate pt needing wound care upon dc. Original Note: TERESA CEDENO Assessment: Face to Face with pt for initial transition planning/care coordination assessment. RN PAO introduced self and role at [facility], pt voices understanding and consents to assessment. Pt is A/O x4 and answers all questions appropriately at this time. Pt sitting up in bed in no distress. Care providers, pharmacy, and demographics verified/updated. Admitting Dx: cellulitis and abscess of R breast PCP:Patrice Specialists:Denies Preferred Pharmacy: [facility] Insurance: [place] Prescription Benefit: yes LW/HPOA: Pt denies having a LW/DPOA and denies need for info regarding AD. LNOK: Salinas Lacy, brother; Yanci Constantino, dtr Living Arrangements: Pt lives with adult son in a ground level apt with no steps to enter. Pt reports she is I in ADL's and denies concerns at home. Transportation: Pt drives self and denies concerns with transportation. DME/HHC/SNF: Pt has a cane at home that she uses. She denies hx of HHC or SNF stays. Pt states no concerns with going home at time of dc. She states she does not have anyone to perform dressing changes at home. Pt states she was under the impression she will not need dressing changes. Will speak with wound nurse regarding wound care. ID to c/s. Pt states no further concerns/needs. CM to follow. Advised pt to ask CM if any further question/concerns/needs arise, voices understanding. Pt Goal: Home Plan: Home
[2022-07-02 14:40] VITALS: BP 116/99; PULSE 68; RESP 18; TEMP 36.9; O2SAT 97
--- NOTE | 2022-07-02 15:12 | PCM.CONS.GEN ---
Assessment & Plan Assessment/Plan (1) Abscess of breast: PLAN: PCR with MRSA, cx with staph aureus. Improved s.p I&D in ED. Cont vanc, plan on po abx at discharge. Will follow, thank you HPI Consult Data Date of Consult: 07/02/22 HPI Narrative Reason for Consultation: abscess HPI Narrative: MAYITO REMY, is a 62 F who presented with several days progressive R breast/axillary pain with redness, swelling. No fever or chills. Went to urgent care, pustule swabbed, sent home on bactrim. Sx worsened, came to ED, I&D done, admitted on vanc. Feeling a little better. Full ROS performed and neg except as noted above PFSH Medical History Depression Former tobacco use HLD (hyperlipidemia) HTN (hypertension) Morbid obesity Home Medications citalopram 20 mg tablet 20 mg PO DAILY 09/13/16 [History Last Taken Unknown] furosemide 40 mg tablet 40 mg PO BID PRN PRN Edema 09/13/16 [History Last Taken Unknown] labetalol 200 mg tablet 200 mg PO BID 09/13/16 [History Last Taken 09/20/16 10:15] multivitamin with folic acid 400 mcg tablet (Thera) 1 tab PO DAILY 09/13/16 [History Last Taken Unknown] cyclobenzaprine 10 mg tablet 10 mg PO TID PRN Muscle Spasm #20 TABLETS 02/27/22 [Rx Last Taken Unknown] naproxen 500 mg tablet 500 mg PO BID #14 tabs 02/27/22 [Rx Last Taken Unknown] oxycodone-acetaminophen 5 mg-325 mg tablet 1 tab PO Q6H PRN PRN pain 5 days #20 TABLETS 02/27/22 [Rx Last Taken Unknown] rosuvastatin 20 mg tablet 20 mg PO QHS 02/27/22 [History Last Taken Unknown] sulfamethoxazole 800 mg-trimethoprim 160 mg tablet 1 tab PO BID infection 07/01/22 [History Last Taken 06/30/22] Allergy/AdvReac Type Severity Reaction Status Date / Time chlorpromazine Allergy Other Verified 07/01/22 11:04 [From Thorazine] lisinopril Allergy Hives Verified 07/01/22 11:04 Family History (Updated 02/27/22 @ 19:[address] Yanira Hernandez MD) Mother Heart disease Hypertension Sister Heart disease Hypertension Myocardial infarction Brother Colon cancer Surgical History History of bilateral tubal ligation History of left breast biopsy Status post total hip replacement, right Social History (Updated 02/27/22 @ 19:[address] Yanira Hernandez MD) household members: none Smoking Status: Former smoker how long ago did patient quit smoking: Quit 07/14/2021, smoked 1 ppd x 3 years. alcohol intake: current alcohol intake frequency: holidays/special occasions only substance use type: does not use Physical Exam Const alert, oriented x3 and no apparent distress General Appearance: cooperative HEENT normocephalic and head/scalp atraumatic Eyes PERRL and EOMs intact bilaterally Neck supple and No nodes Resp normal air movement and clear to auscultation bilaterally Cardio regular rate and regular rhythm GI soft to palpation, non-tender and non-distended Extremity General Extremity: Negative for edema Skin Skin Narrative: R breast abscess with packing place, surrounding erythema and tenderness Neuro CN's II-XII intact bilaterally Lab / Micro Data Attestation: I reviewed the patient's lab results. Result Diagrams: 07/02/22 05:04 07/02/22 05:04 Labs: Laboratory Results - last 24 hr 07/01/22 14:50: S.aureus Protein A PCR POSITIVE H, MRSA (PCR) POSITIVE H 07/02/22 05:04: WBC 9.1, RBC 4.46, Hgb 12.5, Hct 39.2, MCV 87.9, MCH 28.0, MCHC 31.9 L, RDW Std Deviation 43.0, RDW Coeff of Redd 13.3, Plt Count 288, MPV 10.7, Immature Gran % (Auto) 0.700, Neut % (Auto) 62.4, Lymph % (Auto) 22.1, [place] % (Auto) 10.2 H, Eos % (Auto) 4.3, Baso % (Auto) 0.3, Absolute Neuts (auto) 5.7, Absolute Lymphs (auto) 2.02, Nucleated RBC % 0 07/02/22 05:04: Sodium 134 L, Potassium 3.7, Chloride 103, Carbon Dioxide 24.0, Anion Gap 7, BUN 15, Creatinine 1.18 H, Estim Creat Clear Calc 43.78, Est GFR (MDRD) Af Amer 60, Est GFR (MDRD) Non-Af 50 L, BUN/Creatinine Ratio 12.7, Glucose 109 H, Calcium 9.2 Micro: Microbiology 07/01/22 12:45 Wound Abcess - Breast Gram Stain - Final 07/01/22 12:45 Wound Abcess - Breast Wound Culture - Preliminary Staphylococcus aureus
--- NOTE | 2022-07-02 15:13 | CASEMGMT ---
Social Work Per RNCM assessment, pt denies having LW/HCPOA. Pt declines further information regarding these documents. SAGAR Monge
[2022-07-02] MEDS: cycloBENZAPRine HCl 10 MG Tablet PO (20:10)
[2022-07-02] MEDS: MELATONIN 3 MG TABLET PO (20:10)
[2022-07-02 21:08] VITALS: BP 141/74; PULSE 67; RESP 16; TEMP 36.6; O2SAT 95
[2022-07-02] MEDS: Atorvastatin Calcium 40 MG Tablet PO (21:14)
[2022-07-03 03:15] VITALS: BP 107/73; PULSE 78; RESP 15; TEMP 36.8; O2SAT 96
[2022-07-03] MEDS: Acetaminophen 325 MG Tablet 650 MG PO (03:55)
[2022-07-03] MEDS: oxyCODONE 5 MG Tablet PO (03:55)
[2022-07-03 05:43] LABS: Absolute Lymphocyte Count 0.92 X10^3/uL (0.83-4.51); Basophil# 0.02 X10^3/uL; Basophil% 0.3 % (0-1); Eosinophil# 0.44 X10^3/uL; Eosinophils% 6.3 % (0-5); Hematocrit 38.6 % (37-47); Hemoglobin 12.3 g/dL (12.0-15.0); Lymphocyte # 0.92 X10^3/ul (0.83-4.51); Lymphocyte % 13.1 % (19-41); Mean Corp Hgb Conc 31.9 g/dL (32-36); Mean Corpuscular Hgb 28.1 pg (27.0-32.0); Mean Corpuscular Volume 88.1 fL (81-99); Mean Platelet Vol. 10.4 fl (6.2-12.0); Monocyte# 0.65 X10^3/uL; Monocyte% 9.2 % (0-10); NRBC Flagged by Analyzer 0 % (0-5); Neutrophil # 4.97 X10^3/uL (2.7-7.7); Neutrophil % 70.7 % (47-70); Platelet Count 320 K/mm3 (150-450); RBC Distribution Width CV 13.3 % (11.6-14.6); RBC Distribution Width SD 43.3 fl (35.1-43.9); Red Blood Count 4.38 M/mm3 (4.2-5.4)
[2022-07-03 06:27] LABS: Anion Gap 7 (5-15); BUN 16 mg/dL (7-18); BUN/Creat Ratio 16.9 RATIO (10-20); Calcium,Total 9.3 mg/dL (8.5-10.1); Chloride 107 mmol/L (98-107); Creatinine, Serum 0.95 mg/dL (0.55-1.02); EST Glomerular Filtration Rate 64 mL/min (>60); Est Glom Filt Rate - Afr Amer 77 mL/min (>60); Estimated Creatinine Clearance 54.38 ml/min; Glucose 111 mg/dL (74-106); Magnesium 2.3 mg/dL (1.6-2.6); Phosphorus 4.1 mg/dL (2.5-4.9); Potassium 4.1 mmol/L (3.5-5.1); Sodium Level 138 mmol/L (136-145)
[2022-07-03 06:29] LABS: Vancomycin, Trough Level 19.6 ug/mL (5.0-15.0)
--- NOTE | 2022-07-03 06:36 | PCM.RX.CS ---
Consult Pharmacy has been consulted to manage selected antiobiotic: Vancomycin Type of Consult: Follow-up Suspected Infection: Skin/Soft tissue Prior Doses of Antibiotics Received/Current Regimen: Medications Vancomycin HCl 1,500 mg/ (Sodium Chloride) 530 mls @ 250 mls/hr IV Q12H HUSSEIN Last Admin: 07/03/22 06:23 Dose: 250 mls/hr Labs: Sodium 138 mmol/L (136-145) 07/03/22 05:30 Potassium 4.1 mmol/L (3.5-5.1) 07/03/22 05:30 Chloride 107 mmol/L (98-107) 07/03/22 05:30 Carbon Dioxide 24.0 mmol/L (21.0-32.0) 07/03/22 05:30 Anion Gap 7 (5-15) 07/03/22 05:30 BUN 16 mg/dL (7-18) 07/03/22 05:30 Creatinine 0.95 mg/dL (0.55-1.02) 07/03/22 05:30 Est GFR (MDRD) Af Amer 77 mL/min (>60) 07/03/22 05:30 Est GFR (MDRD) Non-Af 64 mL/min (>60) 07/03/22 05:30 BUN/Creatinine Ratio 16.9 RATIO (10-20) 07/03/22 05:30 Glucose 111 mg/dL (74-106) H 07/03/22 05:30 Vancomycin Trough 19.6 ug/mL (5.0-15.0) H 07/03/22 05:30 Microbiology: Microbiology 07/01/22 12:45 Wound Abcess - Breast Gram Stain - Final 07/01/22 12:45 Wound Abcess - Breast Wound Culture - Final Meth. resistant Staph. aureus Weight used for dosin.4 kg Estimated Creatinine Clearance: 54 Goal Trough: 15-20 mcg/mL Pharmacy Plan for Drug Dosing: Vancomycin trough level was 19.6, within the target range of 15-20. Will continue same dosing and re-draw a trough in two days. Pharmacy Service will continue to monitor and adjust dosing as required. Follow-Up Labs: Trough Vancomycin Labs to be done on [date and time ordered]: 07/05/22 @7665
[2022-07-03] MEDS: Labetalol 200 MG Tablet PO (08:06)
[2022-07-03] MEDS: Naproxen 500 MG Tablet PO (08:06)
[2022-07-03] MEDS: Enoxaparin 40 MG/0.4 ML Syringe SC (08:06)
[2022-07-03] MEDS: Citalopram 20 MG Tablet PO (08:06)
--- NOTE | 2022-07-03 08:07 | PCM.PN.HOSP ---
Subjective Subjective Patient right axilla swelling and lymphadenopathy significantly decreased. Cultures positive for MRSA. Plan is to discharge patient home after patient has been seen by ID Objective Data Objective Data Vital Signs: Vital Signs Temp Pulse Resp BP Pulse Ox O2 Del Method 98.2 F 78 15 107/73 96 Room Air 07/03/22 03:15 07/03/22 03:15 07/03/22 03:15 07/03/22 03:15 07/03/22 03:15 07/03/22 08:00 Oxygen Delivery Method Room Air Weight: 126.4 kg Body Mass Index (BMI) 47.8 Intake & Output: Intake and Output for Last 24 Hours 07/01/22 07/02/22 07/03/22 23:59 23:59 23:59 Intake Total 1989 1060 / 1510 700 / 700 Balance 1989 1060 / 1510 700 / 700 Lab / Micro Data Result Diagrams: 07/03/22 05:30 07/03/22 05:30 Labs: Laboratory Results - last 24 hr 07/03/22 05:30: Vancomycin Trough 19.6 H 07/03/22 05:30: WBC 7.0, RBC 4.38, Hgb 12.3, Hct 38.6, MCV 88.1, MCH 28.1, MCHC 31.9 L, RDW Std Deviation 43.3, RDW Coeff of Redd 13.3, Plt Count 320, MPV 10.4, Immature Gran % (Auto) 0.400, Neut % (Auto) 70.7 H, Lymph % (Auto) 13.1 L, [place] % (Auto) 9.2, Eos % (Auto) 6.3 H, Baso % (Auto) 0.3, Absolute Neuts (auto) 5.0, Absolute Lymphs (auto) 0.92, Nucleated RBC % 0 07/03/22 05:30: Sodium 138, Potassium 4.1, Chloride 107, Carbon Dioxide 24.0, Anion Gap 7, BUN 16, Creatinine 0.95, Estim Creat Clear Calc 54.38, Est GFR (MDRD) Af Amer 77, Est GFR (MDRD) Non-Af 64, BUN/Creatinine Ratio 16.9, Glucose 111 H, Calcium 9.3, Phosphorus 4.1, Magnesium 2.3 Micro: Microbiology 07/01/22 12:45 Wound Abcess - Breast Gram Stain - Final 07/01/22 12:45 Wound Abcess - Breast Wound Culture - Final Meth. resistant Staph. aureus Physical Exam Narrative GENERAL: cooperative HEENT: Atraumatic; normocephalic EYES; Anicteric, Normal Conjunctiva NECK; supple, normal thyroid, RESPIRATORY: Diminished to auscultation CARDIOVASCULAR: Regular S1 S2, GI: soft, normoactive bowel sounds, : No Renal angle tenderness; EXTREMITIES: No edema, no clubbing, MUSCULOSKELETAL: no muscle wasting NEURO: Awake; no lateralizing signs. SKIN: induration and redness in her right breast spreading to her right axilla. PSYCH; Flat affect Assessment & Plan Assessment/Plan (1) Cellulitis of breast: (2) Abscess of breast: PLAN: Plan Patient is a 62-year-old lady who presented with cellulitis and abscess involving the right breast underwent I&D in the emergency department subsequently admitted to regular nursing floor for further management 1. Cellulitis and abscess involving the right breast ? Underwent I&D subsequently admitted to the regular nursing floor on broad-spectrum antibiotic therapy vancomycin. Patient rapid MRSA screen came back positive. Awaiting final sensitivities prior to discharge -07/03/2022;Patient right axilla swelling and lymphadenopathy significantly decreased. Cultures positive for MRSA. Plan is to discharge patient home after patient has been seen by ID 2. Hypertension - Blood pressure controlled, home medications continued with dose adjustment as needed 3. Dyslipidemia -Patient is on statin therapy, continued at home dose 4. Depression with anxiety ? Patient is on escitalopram 5. Class III obesity with BMI of 47.8 ? Weight loss advised 6. DVT prophylaxis ? On enoxaparin
[2022-07-03 09:15] VITALS: BP 102/63; PULSE 69; RESP 18; TEMP 36.5; O2SAT 96
[2022-07-03 10:48] VITALS: BP 102/63; PULSE 69; RESP 18; TEMP 36.5; O2SAT 96
--- NOTE | 2022-07-03 12:10 | DS.PCM_ITS ---
Providers Date of Admission: 07/01/22 Date of Discharge: 07/03/22 Primary Care Physician: Dr. Armand Ibrahim MD Consultations 07/01/22 14:04 Consult: Onc/Wound/entry examiner Routine Comment: 07/02/22 09:28 Consult: Infectious Disease Routine Consulting Provider: Nixon Oliver Reason for Consult: MRSA breast cellulitis EMERGENT Consult: No MD Notified: Yes Date Notified: 07/02/22 Time Notified: 10:37 Method of Notification: answering sevice Reason For Visit: CELLULITIS AND ABSCESS OF RIGHT BREAST Diagnosis Discharge Diagnosis (1) Cellulitis of breast: Status: Acute Code(s): N61.0 - Mastitis without abscess (2) Abscess of breast: Status: Acute Code(s): N61.1 - Abscess of the breast and nipple Plan Patient is a 62-year-old lady who presented with cellulitis and abscess involving the right breast underwent I&D in the emergency department subsequently admitted to regular nursing floor for further management 1. Cellulitis and abscess involving the right breast ? Underwent I&D subsequently admitted to the regular nursing floor on broad- spectrum antibiotic therapy vancomycin. Patient rapid MRSA screen came back positive. Awaiting final sensitivities prior to discharge -07/03/2022;Patient right axilla swelling and lymphadenopathy significantly decreased. Cultures positive for MRSA. Plan is to discharge patient home after patient has been seen by ID patient had previously been prescribed Bactrim instructed to continue on discharge 2. Hypertension - Blood pressure controlled, home medications continued with dose adjustment as needed 3. Dyslipidemia -Patient is on statin therapy, continued at home dose 4. Depression with anxiety ? Patient is on escitalopram 5. Class III obesity with BMI of 47.8 ? Weight loss advised 6. DVT prophylaxis ? On enoxaparin Medications at Discharge Home Medications citalopram 20 mg tablet 20 mg PO DAILY 09/13/16 furosemide 40 mg tablet 40 mg PO BID PRN PRN Edema 09/13/16 labetalol 200 mg tablet 200 mg PO BID 09/13/16 multivitamin with folic acid 400 mcg tablet (Thera) 1 tab PO DAILY 09/13/16 cyclobenzaprine 10 mg tablet 10 mg PO TID PRN Muscle Spasm #20 TABLETS 02/27/22 naproxen 500 mg tablet 500 mg PO BID #14 tabs 02/27/22 oxycodone-acetaminophen 5 mg-325 mg tablet 1 tab PO Q6H PRN PRN pain 5 days #20 TABLETS 02/27/22 rosuvastatin 20 mg tablet 20 mg PO QHS 02/27/22 sulfamethoxazole 800 mg-trimethoprim 160 mg tablet 1 tab PO BID infection 07/01/22 Hospital Course Summary of Care Provided Minutes Spent on Discharge: 35 Physical Exam Narrative GENERAL: cooperative HEENT: Atraumatic; normocephalic EYES; Anicteric, Normal Conjunctiva NECK; supple, normal thyroid, RESPIRATORY: Diminished to auscultation CARDIOVASCULAR: Regular S1 S2, GI: soft, normoactive bowel sounds, : No Renal angle tenderness; EXTREMITIES: No edema, no clubbing, MUSCULOSKELETAL: no muscle wasting NEURO: Awake; no lateralizing signs. SKIN: induration and redness in her right breast spreading to her right axilla. PSYCH; Flat affect Weight / BMI Weight Weight: 126.4 kg Body Mass Index (BMI) 47.8 ABG / Lab / Microbiology Data Result Diagrams: 07/03/22 05:30 07/03/22 05:30 Laboratory: Laboratory Results - last 24 hr 07/03/22 05:30: Vancomycin Trough 19.6 H 07/03/22 05:30: WBC 7.0, RBC 4.38, Hgb 12.3, Hct 38.6, MCV 88.1, MCH 28.1, MCHC 31.9 L, RDW Std Deviation 43.3, RDW Coeff of Redd 13.3, Plt Count 320, MPV 10.4, Immature Gran % (Auto) 0.400, Neut % (Auto) 70.7 H, Lymph % (Auto) 13.1 L, [place] % (Auto) 9.2, Eos % (Auto) 6.3 H, Baso % (Auto) 0.3, Absolute Neuts (auto) 5.0, Absolute Lymphs (auto) 0.92, Nucleated RBC % 0 07/03/22 05:30: Sodium 138, Potassium 4.1, Chloride 107, Carbon Dioxide 24.0, Anion Gap 7, BUN 16, Creatinine 0.95, Estim Creat Clear Calc 54.38, Est GFR (MDRD) Af Amer 77, Est GFR (MDRD) Non-Af 64, BUN/Creatinine Ratio 16.9, Glucose 111 H, Calcium 9.3, Phosphorus 4.1, Magnesium 2.3 Microbiology: Microbiology 07/01/22 12:45 Wound Abcess - Breast Gram Stain - Final 07/01/22 12:45 Wound Abcess - Breast Wound Culture - Final Meth. resistant Staph. aureus 07/01/22 12:45 Wound Abcess - Breast Anaerobic Culture - Final No anaerobic bacteria isolated. D/C Instructions Discharge Diet: No restrictions Discharge Activity: Return to Normal Activity Call your doctor if you observe: Fever of 101 or Higher, Shortness of breath, Fainting spells and Chest pain Meaningful Use Info Meaningful Use Diagnoses (Choose all that apply): None applicable Discharge Plan Admission Admit Date/Time: 07/01/22 13:10 Attending Provider: Rony Pierce Primary Care Provider: Armand Ibrahim Consulting Providers: Joe Olson Robert Discharge Orders/Prescriptions Prescriptions: Continued furosemide 40 MG tablet 40 mg PO BID PRN PRN (Reason: Edema) labetalol 200 MG tablet 200 mg PO BID citalopram 20 MG tablet 20 mg PO DAILY multivitamin with folic acid [Thera] 1 TABLET tablet 1 tab PO DAILY rosuvastatin 20 mg tablet 20 mg PO QHS Label Comments: Take 1 tablet by mouth daily at bedtime. cyclobenzaprine 10 MG tablet 10 mg PO TID PRN (Reason: Muscle Spasm) Qty: 20 0RF oxycodone-acetaminophen 1 TABLET tablet 1 tab PO Q6H PRN PRN (Reason: pain) 5 Days Qty: 20 0RF naproxen 500 MG tablet 500 mg PO BID Qty: 14 0RF sulfamethoxazole-trimethoprim 800-160 mg tablet 1 tab PO BID Label Comments: Take 1 tablet by mouth twice daily for 10 days. Referrals / Follow Up: Armand Ibrahim MD [Primary Care Provider] - Disposition Disposition (needs filled in before D/C Order can be placed): Home, Self Care Charges/Coding Visit Charges Inpatient E&M: 28701 Disch Hosp
--- NOTE | 2022-07-03 12:39 | CASEMGMT ---
Discussed with ID, pt to be dc'd on oral antibiotics.
--- NOTE | 2022-07-03 12:55 | PN.ID_ITS ---
Physical Exam Narrative Feeling better, packing out, no fever, no n/v/d. R breast less sore. Const alert and no apparent distress Resp normal air movement and clear to auscultation bilaterally Cardio regular rate and regular rhythm GI soft to palpation, non-tender and non-distended Skin Skin Narrative: R breast improving redness and pain ID ID: Route of nutrition/ use of supplements: [] Nutritional Intake: [] IV Site: [] Bonner Catheter: [] Assessment & Plan Assessment/Plan (1) Abscess of breast: PLAN: PCR with MRSA, cx with MRSA. Improved s.p I&D in ED. On vanc, much improved, ok for home po bactrim DS bid for one more week. Will follow as needed, d/w case management social worker
[2022-07-03 13:14] VITALS: BP 103/58; PULSE 74; RESP 18; TEMP 36.8; O2SAT 97
--- NOTE | 2022-07-03 13:38 | PHA.DC.MR ---
Pharmacy Service has performed discharge medication reconciliation for this patient. The patient's discharge medication list was reviewed for discrepancies and discrepancies were resolved. Home Medications citalopram 20 mg tablet 20 mg PO DAILY 09/13/16 furosemide 40 mg tablet 40 mg PO BID PRN PRN Edema 09/13/16 labetalol 200 mg tablet 200 mg PO BID 09/13/16 multivitamin with folic acid 400 mcg tablet (Thera) 1 tab PO DAILY 09/13/16 cyclobenzaprine 10 mg tablet 10 mg PO TID PRN Muscle Spasm #20 TABLETS 02/27/22 naproxen 500 mg tablet 500 mg PO BID #14 tabs 02/27/22 oxycodone-acetaminophen 5 mg-325 mg tablet 1 tab PO Q6H PRN PRN pain 5 days #20 TABLETS 02/27/22 rosuvastatin 20 mg tablet 20 mg PO QHS 02/27/22 sulfamethoxazole 800 mg-trimethoprim 160 mg tablet 1 tab PO BID infection 07/01/22
== END 2022-07-03 13:32 | disposition home or self-care (01) | DRG 600 ==
LOC: ED 11:40 → MS3 13:11
PROVIDERS: Nurse Practitioner; Admitting Provider Family Medicine; Emergency Provider Emergency Medicine; PCP Family Medicine; Visit Provider Internal Medicine
DX: N61.0 Mastitis without abscess (principal); Z68.42 Body mass index [BMI] 45.0-49.9, adult; B95.62 Methicillin resistant Staphylococcus aureus infection as the cause of diseases classified elsewhere; E66.01 Morbid (severe) obesity due to excess calories; E78.5 Hyperlipidemia, unspecified; I10 Essential (primary) hypertension; F41.8 Other specified anxiety disorders; Z87.891 Personal history of nicotine dependence
CPT/HCPCS: 36415; 80048; 80053; 80202; 83735; 84100; 85025; 87070; 87075; 87077; 87186; 87205; 87640; 99284; J7030; J7040; 90686; A4216